=== PATIENT | male | born 1990 | race American Indian/Alaskan Native ===

== ENCOUNTER 2018-01-13 10:54 | Emergency (ER) | payer SELFPAY ==
[2018-01-13] MEDS ORDERED: ZITHROMAX PO ONE (12:46)
[2018-01-13] MEDS ORDERED: XYLOCAINE 1% MPF 5 mL INFILTRATI ONE (12:46)
[2018-01-13] MEDS ORDERED: ROCEPHIN IM ONE (12:46)
--- NOTE | 2018-01-13 12:50 | Emergency Department Report ---
ED Male HPI - General Chief complaint: Urogenital-Male Stated complaint: TONSIL SWOLLEN/STDS TEST Time Seen by Provider: 01/13/18 12:20 Source: patient Mode of arrival: Ambulatory Limitations: No Limitations - History of Present Illness Initial comments: Patient is 27 years old male with no significant past medical history. Patient presented to the ER complaining of penile discharge and dysuria for the last week. Patient stated that his partner got treated for chlamydia and he went in he had his test done but he did not have the results and he wanted to be treated. Patient denied any nausea or vomiting or fever. MD Complaint: penile discharge, dysuria -: week(s) Quality: burning Worsens with: urination - Related Data Allergies Allergy/AdvReac Type Severity Reaction Status Date / Time No Known Allergies Allergy Unverified 01/13/18 11:07 ED Review of Systems ROS: Stated complaint: TONSIL SWOLLEN/STDS TEST Other details as noted in HPI Comment: All other systems reviewed and negative Constitutional: denies: fever Respiratory: denies: cough, orthopnea Gastrointestinal: denies: abdominal pain, nausea, vomiting Genitourinary: dysuria Neurological: denies: headache, weakness, numbness, paresthesias, confusion ED Past Medical Hx - Past Medical History Previous Medical History?: No - Surgical History Past Surgical History?: No - Social History Smoking Status: Current Every Day Smoker Substance Use Type: Alcohol ED Physical Exam - General Limitations: No Limitations General appearance: alert, in no apparent distress - Head Head exam: Present: atraumatic, normocephalic, normal inspection - ENT ENT exam: Present: normal exam, normal orophraynx, mucous membranes moist - Neck Neck exam: Present: normal inspection - Respiratory Respiratory exam: Present: normal lung sounds bilaterally. Absent: respiratory distress, wheezes, rales, rhonchi, chest wall tenderness, accessory muscle use - Cardiovascular Cardiovascular Exam: Present: regular rate, normal rhythm, normal heart sounds - GI/Abdominal GI/Abdominal exam: Present: soft. Absent: distended, tenderness, guarding, rebound - Extremities Exam Extremities exam: Present: normal inspection, full ROM, normal capillary refill - Back Exam Back exam: Present: normal inspection, full ROM - Neurological Exam Neurological exam: Present: alert, oriented X3 - Skin Skin exam: Present: warm, intact, normal color ED Course Vital Signs 01/13/18 11:07 Temperature 98.6 F Pulse Rate 78 Respiratory 18 Rate Blood Pressure 127/76 O2 Sat by Pulse 100 Oximetry Critical care attestation.: If time is entered above; I have spent that time in minutes in the direct care of this critically ill patient, excluding procedure time. ED Disposition Clinical Impression: Possible exposure to STD, Penile discharge Disposition: DC-01 TO HOME OR SELFCARE Is pt being admited?: No Condition: Stable Instructions: Sexually Transmitted Diseases (ED), Safe Sex (ED) Referrals: PRIMARY CARE, [Primary Care Provider] - 3-5 Days
[2018-01-13 13:11] VITALS: BP 112/72
== END 2018-01-13 13:09 | disposition home or self-care (01) ==
LOC: ED 10:54
DX: R36.9 Urethral discharge, unspecified (principal); R30.0 Dysuria; F17.200 Nicotine dependence, unspecified, uncomplicated
CPT/HCPCS: 96372; 99282; J0696